=== PATIENT | male | born 1960 | race Caucasian/White ===

== ENCOUNTER 2022-09-07 13:58 | Emergency (ER) | payer OTHER ==
[~2022-09-07] VITALS: Ht 162.6 cm; Wt 77.1 kg
[2022-09-07 14:10] VITALS: BP_SYST 132
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
--- NOTE | 2022-09-07 14:20 | NUR ---
ER Dr. Ashley at bedside examining patient.
[2022-09-07] MEDS ORDERED: IBUPROFEN 800 MG TABLET PO ONE (14:30)
[2022-09-07] MEDS ORDERED: DIPHTH,PERTUSS(ACELL),TET VAC 0.5 ML VIAL (Tdap) I.M. ONE (14:30)
[2022-09-07] MEDS ORDERED: LIDOCAINE/EPI 1% 1:100000 20 ML VIAL INJ ONE (14:30)
[2022-09-07] MEDS ORDERED: IBUPROFEN 800 MG TABLET ONE (14:46)
--- NOTE | 2022-09-07 14:48 | NUR ---
Patient agreed to tdap and motrin prior to administration. Patient verified name and . Patient denied allergies. Patient tolerated well. VIS given for TDAP
[2022-09-07] MEDS ORDERED: BACITRACIN ZINC 15 GM TOPICAL OINTMENT TP ONE (15:45)
[2022-09-07] MEDS ORDERED: BACITRACIN 1 GM OINT TP ONE ×2 (15:55→16:00)
--- NOTE | 2022-09-07 16:00 | NUR ---
Patient in CT
[2022-09-07] MEDS ORDERED: IBUP-1971 PO (16:49)
[2022-09-07] MEDS ORDERED: BACI15OI13 TP (16:49)
[2022-09-07] MEDS ORDERED: ONDA-8 TL (16:49)
--- NOTE | 2022-09-07 16:55 | NUR ---
Patient given written and verbal discharge instructions and verbalizes understanding. ER Dr. Ashley discussed with patient the results and treatment provided. Patient in stable condition. ID arm band removed. Rx sent to pharmacy on file. Patient educated on pain management and to follow up with PMD. Pain Scale 1/10. Opportunity for questions provided and answered.
== END 2022-09-07 16:55 | disposition home or self-care (01) ==
LOC: SED 13:58
DX: S01.01XA Laceration without foreign body of scalp, initial encounter (principal); Z65.4 Victim of crime and terrorism; Z79.899 Other long term (current) drug therapy; Y04.8XXA Assault by other bodily force, initial encounter; Y93.89 Activity, other specified; Y92.89 Other specified places as the place of occurrence of the external cause; Y99.8 Other external cause status
CPT/HCPCS: 70450-TC; 76376; 90715; 99285